=== PATIENT | male | born 1985 | race Caucasian/White ===

== ENCOUNTER 2018-06-04 19:14 | Emergency (ER) | payer OTHER, SELFPAY ==
[2018-06-04 19:16] VITALS: BP 145/94; PULSE 94; RESP 16; TEMP 36.3; O2SAT 98; BMI 34.4
--- NOTE | 2018-06-04 19:50 | RAD_ITS ---
STUDY: X-RAY - RIGHT SHOULDER REASON FOR EXAM: Male, 32 years old. Pain TECHNIQUE: 4 view(s) of the shoulder. COMPARISON: None. FINDINGS: Normal glenohumeral articulation. Normal acromioclavicular joint. Normal acromion. Normal humeral head and visualized proximal humerus. The soft tissue structures are unremarkable. Normal visualized pulmonary apex. RAD/Shoulder min 2 Views IMPRESSION: Normal x-ray examination of the shoulder. Electronically Signed: Michael Ayala DO at 20:28 EST Tel [phone], Service support ,
--- NOTE | 2018-06-04 20:37 | ED.VISSUMM ---
- ER Visit Summary Date of Service: 06/04/18 Chief Complaint: Right shoulder injury History of Present Illness: The patient is a 32 M who was attempting to hoist a deer into the bed of his truck by grabbing the hose and lifting the tear in front of him. He did not get to 90 degrees at the shoulder joint when he felt the pop and pain in the right shoulder. Now he notes pain from the AC joint inferiorly to the mid humerus. He notes painful range of motion. Physical Examination: Afebrile vital signs are stable Gen: Well-nourished well-developed Head: Normocephalic atraumatic Eyes: Perrl EOMI ENT: TMs clear no rhinorrhea moist mucous membranes Neck: Supple no lymphadenopathy no JVD nontender CVS: Regular rate rhythm no murmurs normal S1-S2 Respiratory: No distress clear to auscultation bilaterally chest nontender Abdomen: Soft nontender nondistended normal bowel sounds no masses Back: Nontender Extremity: Neurovascularly intact distal to the right shoulder. When I AB duct the shoulder and bring him into apprehension test he states it actually feels better. No tenderness in the subacromial space. No biceps tenderness. No triceps tenderness. No deformities Skin: Normal color no rash Neuro: alert orientated ?3 CN II-XII intact normal strength sensation reflexes gait cerebellar Psych: Normal affect normal mood Test Results: Shoulder films were negative for fracture. Emergency Department Course and Treatment: We will treat this as a muscle strain. If not improving patient will need follow-up for possible MRI for rotator cuff tear. Patient understands our plan is comfortable with it. Impression: 1. Right shoulder muscle strain This note was generated with eduFire dictation software. It may contain incorrect words, spelling, and punctuation that were not noted in review of the chart prior to signing ED Disposition - Plan for ED Patient: Disposition: Home or Assisted Living Chief Complaint: Upper Extremity Injury Instructions: ED Sprain Shoulder Referrals: Derrick Hatch MD [STAFF PHYSICIAN] - (call to arrange follow up appointment with Dr. Hatch if you want to see an Orthopedist or call your PCP for follow up) Additional Instructions: Ice 20-minute sessions Motrin 800 mg 3 times a day as needed for pain.
[2018-06-04 20:45] VITALS: BP 128/78; PULSE 88; RESP 16; O2SAT 99
--- OUTSIDE RECORDS SUMMARY | 2018-07-31 10:05 | XMS RPT_ITS | Clinical Summary ---
:1985 Author Organization [facility] Address [facility] [place] [address] Phone Care Team Providers Name Role Phone Prema Ayoub Unavailable Conditions or Problems Problem Problem Onset Status Entry Provider Comment Standard Annotate Name Code Date Date Description Anxiety 49683235 Active Agapito Regalado Evens Anxiety (SNOMED CT) / TALENT SOURCER BODY MASS Z68.33 Active Agapito Regalado Evens Body mass INDEX (ICD-10-CM) / TALENT SOURCER index (BMI) 33.0-33.9 33.0-33.9, ADULT adult Body mass Z68.34 Inactive Sergio Amaya Body mass index (ICD-10-CM) / Moodispaw index (BMI) (BMI) MD 34.0-34.9, 34.0-34.99 adult , adult Syncope 387645962 Active Harumi Alina Syncope (SNOMED CT) / DeFinis Medications Medication Instructions Start Stop Generic Name NDC Provider Date Date MULTIVITAMIN One tablet by MULTIPLE 37016645598 Agapito Horner ADULT TABS mouth daily 9 VITAMINS-MINE TALENT SOURCER RALS PRILOSEC CPDR One tablet by OMEPRAZOLE [id number] Agapito Horner mouth daily 9 CPDR TALENT SOURCER Medications Administered No information available. Allergies, Adverse Reactions, Alerts Allergy Name Reaction Description Start Date Severity Status Provider NKDA Critical Active Agapito Regalado Evens TALENT SOURCER Results Date Name Value Unit Range Flag Description Clinical Lists Update: Preload GLUCOSE SER 117 mg/dL H blood glucose CALCIUM 9.2 mg/dL calcium, serum BUN/CREAT 21.3 H urea nitrogen/creatinine ratio, serum CREATININE 0.89 mg/dL creatinine, serum BUN 19 mg/dL H urea nitrogen, blood ANION GAP 7 anion gap, serum CO2 26.0 mmol/L carbon dioxide, venous blood CHLORIDE 108 mmol/L H chloride, serum POTASSIUM 3.9 mmol/L potassium, serum SODIUM 141 mmol/L sodium, serum MPV 9.8 fL mean platelet volume PLATELETS 235 10*3/mm3 platelet count RDW 13.1 % red blood cell distribution width MCHC RBC 33.3 g/dL mean corpuscular hemoglobin concentration, RBC MCH 29.5 pg mean corpuscular hemoglobin, RBC MCV 88.8 fL mean corpuscular volume, RBC HCT 42.7 % hematocrit, blood HGB 14.2 g/dL hemoglobin, blood RBC M/UL 4.81 10*6/uL red blood count WBC BLOOD 7.3 10*9/L leukocyte (white blood cells) count, blood Office Visit SMOK STATUS Never smoker Tobacco use [facility] Office Visit: [facility] DIET IT INFRASTRUCTURE ARCHITECT yes Dietary management education, guidance, and counseling (procedure) MEDS REVIEW Done Documentation of current medications (procedure) FALLRSKASSES No Fall risk assessment Plan of Care Type Date Detail Appointment 04:00 PM Sergio Stark MD, [address], [place], [address], Pending order PFM Pending order Follow Up Appt 1 year Pending order MMM Pending order Follow Up Appt 6 weeks Pending order Echocardiogram (complete) Pending order Tilt Table Test Pending order Tilt Table Test Pending order Echocardiogram (complete) Procedures Code Procedure Name Date Entry Date F/U PFM PFM FUA 1 year Follow Up Appt 1 year CPT-40065 EKG (In office) F/U MMM MMM FUA 6 weeks Follow Up Appt 6 weeks Vital Signs Date Name Value Unit Description BMI (Body Mass Index) 33.75 kg/m2 Body Mass Index [Ratio] BP Diastolic 88 mm[Hg] blood pressure, diastolic - 8462-4 BP Systolic 140 mm[Hg] blood pressure, systolic - 8480-6 Heart Rate 80 /min pulse rate E&M - 8867-4 Height 71 [in_us] height E&M - 8302-2 Respiratory Rate 20 /min respiratory rate E&M - 9279-1 Weight Measured 242 [lb_av] weight E&M - 3141-9
--- OUTSIDE RECORDS SUMMARY | 2018-07-31 10:05 | XMS RPT_ITS | Clinical Summary ---
:1985 Author Organization [facility] Address [facility] [place] [address] Phone Care Team Providers Name Role Phone Winston Tsang Unavailable [phone] Conditions or Problems Problem Problem Code Onset Status Entry Provider Comment Standard Annotate Name Date Date Description Body mass Z68.34 Sergio Amaya Body mass index (ICD-10-CM) Moodispaw index (BMI) (BMI) MD 34.0-34.9, 34.0-34.99 adult , adult Syncope [id number] Harumi Y Syncope (SNOMED CT) DeFinis Medications Medication Instructions Start Date Stop Date Generic Name NDC Provider Observed no known medications at Medications Administered No information available. Allergies, Adverse Reactions, Alerts Observed no known allergies at Results Date Name Value Unit Range Flag [...] (white blood cells) count, blood Office Visit MEDS REVIEW Done Documentation of current medications (procedure) NKMED T Documentation of current medications (procedure) FALLRSKASSES No Fall risk assessment SMOK STATUS Never smoker Tobacco use [facility] Plan of Care Type Date Detail Appointment 02:00 PM Agapito Horner NP, [address], [address], [place], [address], Pending order MMM Pending order Follow Up Appt 6 weeks Pending order Echocardiogram (complete) Pending order Tilt Table Test Pending order Tilt Table Test Pending order Echocardiogram (complete) Procedures Code Procedure Name Date Entry Date CPT-89074 EKG (In office) F/U MMM MMM FUA 6 weeks Follow Up Appt 6 weeks Vital Signs Date Name Value Unit Description BMI (Body Mass Index) 34.37 kg/m2 Body Mass Index [Ratio] BP Diastolic 78 mm[Hg] blood pressure, diastolic - 8462-4 BP Systolic 110 mm[Hg] blood pressure, systolic - 8480-6 Heart Rate 88 /min pulse rate E&M - 8867-4 Height 71 [in_us] height E&M - 8302-2 Respiratory Rate 18 /min respiratory rate E&M - 9279-1 Weight Measured 246.44 [lb_av] weight E&M - 3141-9
--- OUTSIDE RECORDS SUMMARY | 2018-07-31 10:05 | XMS RPT_ITS | Clinical Summary ---
:1985 Author Organization [facility] Address [facility] [place] [address] Phone Care Team Providers Name Role Phone Winston Tsang Unavailable 330 Conditions or Problems Problem Problem Code Onset Status Entry Provider Comment Standard Annotate Name Date Date Description Body mass Z68.34 Sergio Amaya Body mass index (ICD-10-CM) Moodispaw index (BMI) (BMI) MD 34.0-34.9, 34.0-34.99 adult , adult Syncope [id number] Harumi Y Syncope (SNOMED CT) DeFinis Medications [...] assessment SMOK STATUS Never smoker Tobacco use [facility] Plan of Care Type Date Detail Appointment 02:00 PM Agapito Horner NP, [address], [address], [place], [address], Pending order MMM Pending order Follow Up Appt 6 weeks Pending order Echocardiogram (complete) Pending order Tilt Table Test Pending order Tilt Table Test Pending order Echocardiogram (complete) Procedures Code Procedure Name Date Entry Date CPT-75706 EKG (In office) F/U MMM MMM FUA [...]
--- OUTSIDE RECORDS SUMMARY | 2018-07-31 10:05 | XMS RPT_ITS | Clinical Summary ---
:1985 Author Organization [facility] Address [facility] [place] [address] Phone Care Team Providers Name Role Phone Prema Ayoub Unavailable Conditions or Problems Problem Problem Onset Status Entry Provider Comment Standard Annotate Name Code Date Date Description Anxiety [id number] Active Agapito Regalado Evens Anxiety (SNOMED CT) / FIELD OBSERVER BODY MASS Z68.33 Active Agapito Regalado Evens Body mass INDEX (ICD-10-CM) / FIELD OBSERVER index (BMI) 33.0-33.9 33.0-33.9, ADULT adult Body mass Z68.34 Inactive Sergio Amaya Body mass index (ICD-10-CM) / Moodispaw index (BMI) (BMI) MD 34.0-34.9, 34.0-34.99 adult , adult Syncope 033393839 Active Harumi Alina Syncope (SNOMED CT) / DeFinis Medications Medication Instructions Start Stop Generic Name NDC Provider Date Date MULTIVITAMIN One tablet by MULTIPLE 88902328804 Agapito Horner ADULT TABS mouth daily 9 VITAMINS-MINE FIELD OBSERVER RALS PRILOSEC CPDR One tablet by OMEPRAZOLE [id number] Agapito Horner mouth daily 9 CPDR FIELD OBSERVER Medications Administered No information available. Allergies, Adverse Reactions, Alerts Allergy Name Reaction Description Start Date Severity Status Provider NKDA Critical Active Agapito Regalado Evens FIELD OBSERVER Results Date Name Value Unit Range Flag [...] Visit SMOK STATUS Never smoker Tobacco use [facility] Office Visit: [facility] DIET QUARANTINE OFFICER yes Dietary management education, guidance, and counseling (procedure) MEDS REVIEW Done Documentation of current medications (procedure) FALLRSKASSES No Fall risk assessment Plan of Care Type Date Detail Appointment 04:00 PM Sergio Stark MD, [address], [address], [place], [address], Pending order PFM Pending order Follow Up Appt 1 year Pending order MMM Pending order Follow Up Appt 6 weeks Pending order Echocardiogram (complete) Pending order Tilt Table Test Pending order Tilt Table Test Pending order Echocardiogram (complete) Procedures Code Procedure Name Date Entry Date F/U PFM PFM FUA 1 year Follow Up Appt 1 year CPT-15262 EKG (In office) F/U MMM MMM FUA [...]
--- OUTSIDE RECORDS SUMMARY | 2018-07-31 10:05 | XMS RPT_ITS | Summary of Care ---
:1985 Author Organization [facility] Address [address] [place] [address] Care Team Providers Name Role Phone Agapito Lozada MD Primary Care Provider Reason for Visit Reason Comments Pain Encounter Details Date Type Department Care Team Description 06/11/2018 Office Visit [facility] Orthopedic Haile Pollard Acute pain of right shoulder (Primary Dx); & Sports Medicine MD Deandre Rotator cuff strain, right, initial encounter [facility] [address] [place] [address] [place] [address] [phone] Allergies Active Allergy Reactions Severity Noted Date Comments Cat Dander Other (See Comments) High 1983 Sinus, eye issues, sneezing Levonorgestrel-Ethinyl Other (See Comments) Medium 03/09/2015 Sinus issues Estrad as of this encounter Medications Prescription Sig. Disp. Refills Start Date End Date Status fluticasone (VERAMYST) Instill 2 12/06/2017 12/06/2018 Active 27.5 mcg/actuation sprays into nasal spray each nostril. pantoprazole (PROTONIX) Take 1 (one) 30 tablet 11 05/28/2018 05/28/2019 Active 40 MG tablet (40 mg tabletIndications: total) by Gastroesophageal reflux mouth daily . disease, esophagitis presence not specified sucralfate (CARAFATE) 1 Take 1 (one) 120 tablet 05/28/2018 05/28/2019 Active gram tabletIndications: tablet (1 g Gastroesophageal reflux total) by disease, esophagitis mouth 4 (four) presence not specified times a day before meals . as of this encounter Active Problems Problem Noted Date Rotator cuff strain, right, initial encounter 06/11/2018 Shoulder pain, right 06/07/2018 Overview: Date of injury 06/04/2018 Nature of injury: Recreational [id number] Last Assessment & Plan: Believe you have ruptured your supraspinatus tendon and its retracted. Range of motion activities and ice are recommended. We will attempt to get you in contact with orthopedics so they can determine physical therapy versus immediate intervention. Have made a referral to see Dr. Penaloza. Will write for an initial 2-week work slip. Wellness examination 05/28/2018 Last Assessment & Plan: The lab is open here at the office M-F 730am-4pm, you do not need an appointment, just walk in. I would like you to obtain some fasting blood work. This means that you can not have anything to eat or drink for about 10 hours before your blood is drawn. The only thing you are allowed to have befo re your labs is a glass of water or a cup of BLACK coffee. Thank you. Body mass index (BMI) of 34.0 to 34.9 in adult 05/28/2018 Overview: Height 6' Weight 253 # BMI 34.3 Last Assessment & Plan: Eat meat, vegetables, nuts and seeds, some fruit, very little starch and absolutely no sugar. If you can grow it or kill it, then that's what you should be eating..... Chicken, turkey, fish pork, beef, ALL vegetables and fruit. If it is processed or you can not pronounce the ingredients, do not eat it! Shop the outside perimeter of the grocery store. Listen to your body, if you are hungry all the time you may need to increase your intake of healthy veggies and small healthy snacks. Eat whole, healthy foods and you won't need to count calories. Increase your activity level; the more you move your body the healthier you will be and the better you will feel! Diet and Exercise is not a fad, it really works! Elevated BP without diagnosis of hypertension 05/28/2018 Last Assessment & Plan: BP is elevated today but when I review all of your BP's in the past year your BP is normal. Lets see what it is at your next visit. If your BP continues to run over 140/80 when checked randomly at home we need you to be seen again. GERD (gastroesophageal reflux disease) 01/18/2015 Last Assessment & Plan: Your GERD is very uncontrolled at this time, even if you miss one dose of Omeprazole you are miserable. Your GERD is also causing palpitations and occasional anxiety. We really need to get this under control. I am going to treat you for gastritis. Take the protonix daily and the carafate is 3-4 times a day before meals. Put this pill in a shot glass of water and drink the slurry. Take this medicine for 4- 6 weeks. If no improvement you need to be seen again for a scope. Immunizations Name Dates Previously Given Next Due INFLUENZA IIV4 3YO OR > FLUARIX/FLUZONE/AFLURIA 55614 05/28/2018 Influenza IIV4 6-35 mo (Fluzone Quadrivalent) 03/01/2017 Tdap 03/01/2017 as of this encounter Social History Tobacco Use Types Packs/Day Years Used Date Never Smoker Smokeless Tobacco: Never Used Alcohol Use Drinks/Week oz/Week Comments Yes 1 Cans of beer 1.2 1 Shots of liquor Sex Assigned at Date Recorded Not on file as of this encounter Last Filed Vital Signs Vital Sign Reading Time Taken Blood Pressure - - Pulse - - Temperature - - Respiratory Rate - - Oxygen Saturation - - Inhaled Oxygen Concentration - - Weight 113.4 kg (250 lb) 06/11/2018 9:58 AM EST Height 182.9 cm (6') 06/11/2018 9:58 AM EST Body Mass Index 33.91 06/11/2018 9:58 AM EST in this encounter Progress Notes Haile Pollard MD - 06/11/2018 11:51 AM EST Dictation on: 06/11/2018 11:53 AM by: HAILE POLLARD [[id number]] in this encounter Plan of Treatment Upcoming Encounters Date Type Specialty Care Team Description 06/12/2018 Hospital Encounter Agapito Lozada MD [address] [place] [address] [phone] 07/11/2018 Office Visit Primary Care Agapito Lozada MD [address] [place] [address] [phone] 08/17/2018 Office Visit Primary Care Agapito Lozada MD [address] [place] [address] [phone] Health Maintenance Due Date Last Done Comments TETANUS EVERY 10 YR 03/01/2027 03/01/2017 SEQUENTIAL INFLUENZA VACCINE Completed 05/28/2018, 03/01/2017 as of this encounter Visit Diagnoses Diagnosis Acute pain of right shoulder - Primary Rotator cuff strain, right, initial encounter
--- OUTSIDE RECORDS SUMMARY | 2018-07-31 10:05 | XMS RPT_ITS ---
:1985 Author Organization OHIP Care Team Providers Name Role Phone DOMO PRITCHETT Primary Care Unavailable DOMINGO LEVY Attending Unavailable DOMO PRITCHETT Primary Care Unavailable COLUMBA AGUILAR Attending Unavailable DOMO PRITCHETT Attending Unavailable DOMO PRITCHETT Primary Care Unavailable DOMO PRITCHETT Primary Care Unavailable LOUIE KAISER Attending Unavailable Yojana Khan Attending Unavailable Mahin Chapman Attending Unavailable NIRMALA VILLATORO Primary Care Unavailable PROBLEMS PROBLEMS DATE TYPE CONDITION / CODE ATTENDING STATUS SOURCE 06/07/2018 Admitting Pain in right DOMO PRITCHETT [facility] diagnosis shoulder / ONDINA Juan Pablo M25.511(ICD-10) Repository 06/07/2018 Admitting Unknown / COLUMBA AGUILAR [facility] diagnosis UNK(Unknown) Three Repository 06/07/2018 Unknown S49.91XA - Mahin Chapman Active Rupinder Unspecified injury [facility] of right [facility] and upper arm, Repository initial encounter / S49.91XA(ICD-10) 05/28/2018 Admitting Elevated [facility] diagnosis blood-pressure LOUIE Almeida reading, without Repository diagnosis of hypertension / R03.0(ICD-10) 05/28/2018 Admitting Body mass index SPRING, Active [facility] diagnosis (bmi) 34.0-34.9, LOUIE Schwartz Three adult / Repository Z68.34(ICD-10) 05/28/2018 Admitting Encounter for MIAMI, Active [facility] diagnosis general adult LOUIE Almeida medical Repository examination without abnormal findings / Z00.00(ICD-10) 05/28/2018 Admitting Gastro-esophageal [facility] diagnosis reflux disease LOUIE Almeida without Repository esophagitis / K21.9(ICD-10) 05/28/2018 Admitting Encounter for MIAMI, Active [facility] diagnosis immunization / LOUIE Almeida Z23(ICD-10) Repository PROCEDURES PROCEDURES No Procedure Records FoundRESULTS RESULTS EMERGENCY DEPARTMENT Observed: 06/06/2018 Status: F Source: [place] SUMMARY 8:16 AM [facility] Medical Records Department [address] [place] [address] Emergency Department Summary 06/04/182036 MR#: [id number] Acct: [id number] Name: SALONI SHERIFF Rep #: [id number] : 1985 32 From: Mahin Chapman DO PCP: OUT OF TOWN DOCTOR Status: DEP ER - ER Visit Summary Date of Service: 06/04/18 Chief Complaint: Right shoulder injury History of Present Illness: The patient is a 32 M who was attempting to hoist a deer into the bed of his truck by grabbing the hose and lifting the tear in front of him. He did not get to 90 degrees at the shoulder joint when he felt the pop and pain in the right shoulder. Now he notes pain from the AC joint inferiorly to the mid humerus. He notes painful range of motion. Physical Examination: Afebrile vital signs are stable Gen: Well-nourished well-developed Head: Normocephalic atraumatic Eyes: Perrl EOMI ENT: TMs clear no rhinorrhea moist mucous membranes Neck: Supple no lymphadenopathy no JVD nontender CVS: Regular rate rhythm no murmurs normal S1-S2 Respiratory: No distress clear to auscultation bilaterally chest nontender Abdomen: Soft nontender nondistended normal bowel sounds no masses Back: Nontender Extremity: Neurovascularly intact distal to the right shoulder. When I AB duct the shoulder and bring him into apprehension test he states it actually feels better. No tenderness in the subacromial space. No biceps tenderness. No triceps tenderness. No deformities Skin: Normal color no rash Neuro: alert orientated 3 CN II-XII intact normal strength sensation reflexes gait cerebellar Psych: Normal affect normal mood Test Results: Shoulder films were negative for fracture. Emergency Department Course and Treatment: We will treat this as a muscle strain. If not improving patient will need follow-up for possible MRI for rotator cuff tear. Patient understands our plan is comfortable with it. Impression: 1. Right shoulder muscle strain This note was generated with OpenQ dictation software. It may contain incorrect words, spelling, and punctuation that were not noted in review of the chart prior to signing ED Disposition - Plan for ED Patient: Disposition: Home or Assisted Living Chief Complaint: Upper Extremity Injury Instructions: ED Sprain Shoulder Referrals: Derrick Hacth MD [STAFF PHYSICIAN] - (call to arrange follow up appointment with Dr. Hatch if you want to see an Orthopedist or call your PCP for follow up) Additional Instructions: Ice 20-minute sessions Motrin 800 mg 3 times a day as needed for pain. What to do if you have Problems For any increased pain, shortness of breath, bleeding, nausea or vomiting, chest pain, or any unexpected problems, contact your Primary Care Provider. Call [facility] ([phone]) or report to the closest Emergency Room. Call 911 if necessary. 06/06/18 0816 <Electronically signed by Mahin Chapman DO> Date Mahin Chapman DO Cosigner Signature (If Indicated): Date CC: OUT OF TOWN DOCTOR SHOULDER MIN 2 VIEWS Observed: 06/04/2018 Status: F Source: RUPINDER 7:47 PM [facility] Imaging Services [facility] [place] [address] Shoulder min 2 Views MR#: [id number] Acct: [id number] Name: SALONI SHERIFF Rep #: [id number] : 1985 M 32 From: Michael Ayala DO PCP: OUT OF TOWN DOCTOR Status: REG ER Study: Shoulder min 2 Views Date of Exam: 06/04/18 Exam# [id number] Ordering Dr: Mahin Chapman DO STUDY: X-RAY - RIGHT SHOULDER REASON FOR EXAM: Male, 32 years old. Pain TECHNIQUE: 4 view(s) of the shoulder. COMPARISON: None. FINDINGS: Normal glenohumeral articulation. Normal acromioclavicular joint. Normal acromion. Normal humeral head and visualized proximal humerus. The soft tissue structures are unremarkable. Normal visualized pulmonary apex. RAD/Shoulder min 2 Views IMPRESSION: Normal x-ray examination of the shoulder. Electronically Signed: Michael Ayala DO at 20:28 EST Tel [phone], Service support , CC: Mahin Chapman DO; OUT OF TOWN DOCTOR Investment Specialist: Signed ALLERGIES ALLERGIES DATE TYPE / CODE NAME / CODE REACTION SEVERITY SOURCE 06/04/2018 Drug No Known Unknown [facility] Allergy/4160 Allergies/F001 Hospital 22270(SNOMED 814819(RXNORM) Repository CT) 03/09/2015 DRUG/[id number] LEVONORGESTREL Other [facility] [place] [employer] [facility] 03(SNOMED -ETHINYL Repository CT) ESTRAD 1985 DRUG CAT DANDER Other [facility] INGREDI/4195 Repository 39038(SNOMED CT) ENCOUNTERS ENCOUNTERS ADMIT/DISCHARGE ACCOUNT NUMBER ADMITTING ENCOUNTER LOCATION SOURCE CLASS 06/11/2018/06/11/20 [id number] Ambulatory Building:[place] [address] [facility] ER Repository 06/07/2018/06/11/20 [id number] Ambulatory Building:[place] [address] [address] Three Repository 06/07/2018 [id number] Ambulatory Building:[facility] Three Repository 06/04/2018/06/04/20 [id number] Emergency [address] ding:ED Repository 05/28/2018/06/11/20 [id number] Ambulatory Building:[facility] [address] Three Repository 05/20/2018 [id number] Ambulatory BMSBuilding: Rupinder BMS.[facility] Repository PAYERS PAYERS ENCOUNTER GUARANTOR PAYER SUBSCRIBER SOURCE 06/11/2018 SALONI CALLDOB: Primary SALONI CALLDOB: [facility] Insurance:[facility] [id number] Three Repository [address] Number: [id number] [place], [place] Date: [place] [phone]: (HP) (WP) 06/07/2018 SALONI CALLDOB: Primary SALONI CALLDOB: [facility] Insurance:[facility] [id number] Three Repository [address] Number: [id number] [place], [place] Date: [place] [address]Qbg: (HP) (WP) 06/07/2018 SALONI CALLDOB: Primary SALONI CALLDOB: [facility] Insurance:[facility] [id number] Three Repository [address] Number: [id number] [place], [place] Date: [place] [id number]: (WP) 06/04/2018 Saloni N [id number] Primary Saloni N CallDOB: [address], Insurance:[employer] [id number] [address]Apu: [facility] Number: [id number] Repository (HP) Date:[id number] [address], [place] [address]UD: 06/04/2018 Secondary NOT GIVENUNK Rupinder Insurance:SELF PAY [facility] Number: Effective Repository Date:2018-06-04 05/28/2018 SALONI CALLDOB: Primary SALONI CALLDOB: [facility] [id number] Insurance:[facility] [id number] Three Repository [address] Number: [id number] [place], [place] Date: [place] [id number]: () () 05/20/2018 Saloni N [id number] Primary Saloni N CallDOB: [address] [facility] Insurance:[employer] [id number] access hospital [address]Csp: [facility] Number: [id number] Repository (HP) Date:[id number] [address], [place] [address]OC: 05/20/2018 Secondary NOT GIVENUNK Rupinder Insurance:SELF PAY [facility] Number: Effective Repository Date:2018-05-20
--- OUTSIDE RECORDS SUMMARY | 2018-07-31 10:05 | XMS RPT_ITS | Clinical Summary ---
:1985 Author Organization [place] [employer] [facility] Address [address] [place] [address] Phone Care Team Providers Name Role Phone Sergio Stark MD Unavailable [ ] Conditions or Problems Problem Problem Code Onset Status Entry Provider Comment Standard Annotate Name Date Date Description Body mass Z68.34 Sergio Amaya Body mass index (ICD-10-CM) Mi index (BMI) (BMI) 34.0-34.9, 34.0-34.99 adult , adult Syncope [id number] Harumi Y Syncope (SNOMED CT) DeFinis Medications No information available. Medications Administered No information available. Allergies, Adverse Reactions, Alerts No information available. Results Date Name Value Unit Range Flag [...] 10*9/L leukocyte (white blood cells) count, blood Plan of Care Type Date Detail Appointment 10:30 AM Sergio Stark MD, [address], [address], [place], [address], Appointment 02:00 PM Agapito Horner NP, [address], [address], [place], [address], Pending order MMM Pending order Follow Up Appt 6 weeks Pending order Echocardiogram (complete) Pending order Tilt Table Test Pending order Tilt Table Test Pending order Echocardiogram (complete) Procedures Code Procedure Name Date Entry Date CPT-72794 EKG (In office) F/U MMM MMM FUA 6 weeks Follow Up Appt 6 weeks Vital Signs No information available.
== END 2018-06-04 20:46 | disposition home or self-care (01) ==
PROVIDERS: Emergency Provider Emergency Medicine
DX: S46.911A Strain of unspecified muscle, fascia and tendon at shoulder and upper arm level, right arm, initial encounter (principal); X50.0XXA Overexertion from strenuous movement or load, initial encounter; Y93.9 Activity, unspecified; Y92.89 Other specified places as the place of occurrence of the external cause; Y99.8 Other external cause status
CPT/HCPCS: 73030; 99282

== ENCOUNTER 2018-06-29 19:33 | Emergency (ER) | payer OTHER, SELFPAY ==
[2018-06-29 19:35] VITALS: BP 162/113; PULSE 108; RESP 23; TEMP 36.6; O2SAT 96; BMI 35.6
--- NOTE | 2018-06-29 19:55 | RAD_ITS ---
STUDY: X-RAY CHEST REASON FOR EXAM: Male, 32 years old. Chest pain. TECHNIQUE: Single frontal view of the chest. COMPARISON: None. FINDINGS: There is low volume inspiration. There is no demonstrated pleural abnormality. Normal size heart. Normal mediastinum and deon. Normal visualized pulmonary arteries. Normal visualized aortic arch and descending thoracic aorta. Normal visualized thoracic spine. Normal visualized ribs, clavicles, and shoulders. There is no demonstrated abnormality of the visualized soft tissue structures of the upper abdomen. RAD/Chest 1 View (Portable) IMPRESSION: The volume inspiration with no acute pathology. Electronically Signed: Junior Rausch MD at 20:25 EST , Service support ,
[2018-06-29] MEDS: 0.9% Normal Saline 1,000 ML 150 ML IV (19:58)
[2018-06-29] MEDS: Mag Hydrox/Al Hydrox/Simeth 30 ML UDC PO (19:58)
[2018-06-29] MEDS: Dicyclomine 10 MG Capsule 20 MG PO (19:58)
[2018-06-29 20:00] LABS: Absolute Lymphocyte Count 3.43 X10^3/ul (0.83-4.51); Absolute Neutrophil Count 6.7 X10^3/uL (2.0-7.7); Basophil# 0.03 X10^3/uL; Basophil% 0.3 % (0-1); Eosinophil# 0.12 X10^3/uL; Eosinophils% 1.1 % (0-5); Hematocrit 45.2 % (40-54); Hemoglobin 15.2 g/dl (13.0-16.5); Lymphocyte # 3.43 X10^3/ul (4.0); Lymphocyte % 30.4 % (19-41); Mean Corp Hgb Conc 33.6 g/gl (32-36); Mean Corpuscular Hgb 29.5 pg (27.0-32.0); Mean Corpuscular Volume 87.6 fL (80-94); Mean Platelet Vol. 10.1 fl (6.2-12.0); Monocyte# 0.94 X10^3/uL; Monocyte% 8.3 % (0-10); Neutrophil # 6.74 X10^3/uL (2.7-7.7); Neutrophil % 59.6 % (47-70); Platelet Count 274 K/mm3 (150-450); RBC Distribution Width CV 13.5 % (11.6-14.6); RBC Distribution Width SD 42.9 fl (35.1-43.9); Red Blood Count 5.16 M/mm3 (4.6-6.2); White Blood Count 11.3 K/mm3 (4.4-11.0)
[2018-06-29 20:01] LABS: POSITIVE COUNT NO; POSITIVE DIFFERENTIAL NO; POSITIVE MORPHOLOGY NO
[2018-06-29 20:08] LABS: D-Dimer Quantitative (DVT/PE) < 0.27 FEU/ug/m (0.27-0.49)
[2018-06-29 20:13] LABS: Anion Gap 6 (5-15); BUN 17 mg/dL (7-18); BUN/Creat Ratio 18.1 RATIO (10-20); Calcium,Total 9.4 mg/dL (8.5-10.1); Chloride 107 mmol/L (98-107); Creatinine, Serum 0.94 mg/dL (0.70-1.30); EST Glomerular Filtration Rate 97 mL/min (>60); Est Glom Filt Rate - Afr Amer 118 mL/min (>60); Estimated Creatinine Clearance 121.54 ml/min; Glucose 100 mg/dL (74-106); Potassium 4.1 mmol/L (3.5-5.1); Sodium Level 141 mmol/L (136-145)
[2018-06-29 20:45] VITALS: BP 146/89; PULSE 93; RESP 14; O2SAT 96
[2018-06-29] MEDS: LORazepam 2 MG/ML Syringe 0.5 MG IV (21:21)
[2018-06-29 21:22] VITALS: BP 126/86; PULSE 92; RESP 16; O2SAT 95
--- NOTE | 2018-06-29 21:54 | ED.VISSUMM ---
- ER Visit Summary Date of Service: 06/29/18 Chief Complaint: Chest pain History of Present Illness: The patient is a 32 M with intermittent episodes of chest pain for the past several months. Martina's episode started when he was eating dinner. He describes a tightness and states it almost feels like his heart rate pauses. Denies episode has lasted the longest. He was seen by nurse practitioner previously and it was felt to be related to his reflux. His antacid medications were changed but he is continued to have episodes. Patient has history of asthma, reflux disease, anxiety. He denies personal history of cardiac disease. No significant family history. Physical Examination: Blood pressure is 162/113, heart rate 108. Patient sitting upright in bed. He is in no acute distress but does appear anxious. Heart is slightly tachycardic and regular. Lung sounds are clear. There is no reproducible chest wall tenderness. Abdomen is soft nontender. Lower extreme examination was no calf tenderness or edema. Test Results: Portable chest x-ray shows no acute pathology. EKG is sinus tach at 112 with no acute ischemia. CBC was a white count 11.3 with unremarkable differential. Chemistry studies normal. Troponin and d-dimer are both negative. Emergency Department Course and Treatment: The patient's description I first thought patient may be having esophageal spasms. He was given a GI cocktail and Bentyl. He states his symptoms did improve but were starting to return when I went in for repeat evaluation. He was given 0.5 mg of IV Ativan. On final repeat exam he feels much improved. Heart rate is in the low 90s. He states that he has been dealing with anxiety for quite some time but is never sought help for this. He will be given Bentyl and Ativan for home and will follow up with his PCP this week. Treatment Plan: [] Disposition: Discharge Impression: 1. Atypical chest pain 2. Anxiety This note was generated with I-Shake dictation software. It may contain incorrect words, spelling, and punctuation that were not noted in review of the chart prior to signing ED Disposition - Plan for ED Patient: Disposition: Home or Assisted Living Chief Complaint: Chest Pain Instructions: ED Stress React, ED Chest Pain NonCardiac Prescriptions: Dicyclomine HCl [Bentyl] 20 mg PO TIDAC PRN #20 capsule PRN Reason: Spasms Lorazepam [Ativan] 0.5 mg PO TID PRN #10 tablet PRN Reason: Anxiety Referrals: Agapito Lozada [Primary Care Provider] - As soon as possible
--- NOTE | 2018-06-29 21:54 | ED.DEP ---
ED Disposition - Plan for ED Patient: Disposition: Home or Assisted Living Chief Complaint: Chest Pain Instructions: ED Chest Pain NonCardiac, ED Stress React Prescriptions: Dicyclomine HCl [Bentyl] 20 mg PO TIDAC PRN #20 capsule PRN Reason: Spasms Lorazepam [Ativan] 0.5 mg PO TID PRN #10 tablet PRN Reason: Anxiety Referrals: Agapito Lozada [Primary Care Provider] - As soon as possible
[2018-06-29] MEDS: LORazepam 0.5 MG Tablet PO (22:06)
[2018-06-29] MEDS: Dicyclomine 10 MG Capsule PO (22:06)
[2018-06-29 22:08] VITALS: BP 129/85; PULSE 83; RESP 16; O2SAT 95
== END 2018-06-29 22:09 | disposition home or self-care (01) ==
PROVIDERS: Emergency Provider Emergency Medicine; Family Provider Family Medicine; PCP Family Medicine
DX: R07.89 Other chest pain (principal); F41.9 Anxiety disorder, unspecified; K21.9 Gastro-esophageal reflux disease without esophagitis; J45.909 Unspecified asthma, uncomplicated
CPT/HCPCS: 71045; 80048; 84484; 85025; 85379; 93005; 96361; 96374; 99284; J7030; A4216

== ENCOUNTER 2019-08-14 20:11 | Emergency (ER) | payer OTHER, SELFPAY ==
[2019-08-14 20:12] VITALS: BP 152/104; PULSE 107; RESP 16; TEMP 37.3; O2SAT 97; BMI 39.0
--- NOTE | 2019-08-14 20:47 | ED.VIS.GEN ---
History of Present Illness Chief Complaint: Neuro S/Sx Informant: Patient Onset: Today Narrative: Patient is a 33-year-old male with history of acid reflux presenting with facial weakness on the right side. He states it started yesterday with tingling and has right side of his tongue and then progressed to weakness and tingling of his right face. He also notes his right eye is dry and he is having a hard time blinking it. He is never had symptoms like this before. He denies any vision changes but does have some eye irritation. He denies any associated slurred speech, hearing changes, extremity weakness or paresthesias. He denies any tick bites or recent camping. Past Medical History - Allergies and Home Meds Allergies/Adverse Reactions: Allergies cat dander Allergy (Verified 08/14/19 20:15) Other Primary Care Physician: Care Physician,No Primary [Primary Care Provider] - Past Medical History: None - GERD Surgical History: noncontributory Lives: Spouse/ Significant Other Smoking Status: Never smoker Review of Systems General: Denies: Chills, Fever, Sweats Eyes: Reports: - - Dry eye?right. Denies: Visual changes - bilaterally, Diplopia ENT: Denies: Rhinorrhea, Sore throat Cardiovascular: Denies: Chest pain, Palpitations Respiratory: Denies: Dyspnea, Cough, Dyspnea on exertion Gastrointestinal: Denies: Abdominal pain, Nausea, Vomiting, Diarrhea, Melena, Hematochezia Genitourinary: Denies: Dysuria, Hematuria, Frequency Musculoskeletal: Denies: Back pain, Extremity Pain Skin: Denies: Rash, Wounds Neurological: Reports: Weakness - Right face. Denies: Headache, Numbness Physical Exam Vital Signs/Narrative: Vital Signs Temp Pulse Resp BP Pulse Ox 08/14/19 20:12 99.2 F H 107 H 16 152/104 H 97 Inital Vital Signs reviewed: Yes General: Well nourished, Well developed, Obese, No Acute Distress Head: Normocephalic, Atraumatic Eyes: Perrl, EOMI, - - Normal conjunctiva, incomplete blinking of the right eye ENT: Moist mucous membranes, No rhinorrhea, TM's clear Neck: Supple, Nontender Cardiovascular: Regular rate, Regular rhythm, No murmurs Respiratory: No distress, CTA bilaterally, Chest nontender Abdomen: Soft, Nontender, Nondistended, Normal bowel sounds Back: Nontender, Normal Inspection Extremities: Nontender, No edema Skin: Normal color, No rash Neurological: Alert, Oriented x3, Normal Strength, Normal Sensation, Right side facial droop - Involvement of the forehead as well as the lower face Psychological: Normal affect, Normal Mood Diagnostic/Tx/Re-eval - Medical Decision Making Patient is evaluated for 2 days of right-sided face symptoms. This is consistent with Khan's palsy. He will be placed on a course of prednisone for symptom relief. Patient is counseled on eyepatch and given supplies in the emergency room. He is counseled on the risk of corneal abrasion. He is instructed to follow-up with his primary care doctor. Patient is counseled on signs and symptoms requiring return to the emergency room. Patient verbalizes agreement and understand this plan. Patient discharged home in stable and improved condition. ED Disposition - Plan for ED Patient: Disposition: Home or Assisted Living Diagnosis: Right-sided Khan's palsy Instructions: Khan's Palsy Prescriptions: Prednisone [Deltasone] 60 mg PO DAILY 5 Days #15 tab Prescription Printed Referrals: Care Physician,No Primary [Primary Care Provider] - Additional Instructions: Make sure he patch her eye at night and use eyedrops during the day to keep your eye moist. Take an antacid such as Pepcid with the steroids and food to help prevent upset stomach. Follow-up with your primary care doctor. Symptoms last anywhere between 3 weeks to a couple months and sometimes permanent.
[2019-08-14 21:21] VITALS: PULSE 88; RESP 16; O2SAT 97; BMI 39.0
--- NOTE | 2019-08-14 21:23 | ED.RN ---
facial paralysis to rt side of face.
== END 2019-08-14 21:25 | disposition home or self-care (01) ==
PROVIDERS: Emergency Provider Emergency Medicine
DX: G51.0 Bell's palsy (principal); K21.9 Gastro-esophageal reflux disease without esophagitis
CPT/HCPCS: 99282